=== PATIENT | female | born 1995 | race Caucasian/White ===

== ENCOUNTER 2017-06-21 22:02 | Emergency (ER) | payer OTHER ==
[~2017-06-21] VITALS: Ht 152.4 cm; Wt 70.5 kg
[2017-06-21 22:22] VITALS: BP 110/75
== END 2017-06-22 03:21 | disposition left against medical advice (07) ==
LOC: EMS 22:04
DX: M54.6 Pain in thoracic spine (principal); Z53.21 Procedure and treatment not carried out due to patient leaving prior to being seen by health care provider